=== PATIENT | female | born 1985 | race African-American/Black ===

== ENCOUNTER 2018-10-07 20:26 | Emergency (ER) | payer MEDICAID ==
[~2018-10-07] VITALS: Ht 170.2 cm; Wt 69.9 kg
[2018-10-07 20:34] VITALS: Ht 170.2 cm; Wt 69.9 kg
[2018-10-07 22:31] VITALS: BP 97/49
== END 2018-10-07 22:31 | disposition home or self-care (01) ==
LOC: ED 20:26
DX: L50.0 Allergic urticaria (principal); F32.9 Major depressive disorder, single episode, unspecified; F41.9 Anxiety disorder, unspecified; F17.210 Nicotine dependence, cigarettes, uncomplicated
CPT/HCPCS: 99406; J2930; J3490; J7030